=== PATIENT | female | born 1955 | race Caucasian/White ===

== ENCOUNTER 2016-08-29 18:17 | Inpatient (IN) | payer BC ==
[~2016-08-29] VITALS: Ht 165.1 cm; Wt 68.0 kg
[2016-08-29 20:38] LABS: EOSINOPHIL (%) 0.6 % (0-5); HEMATOCRIT 39.9 % (36.0-46.0); LYMPHOCYTE COUNT 1.4 K/uL (1.0-2.8); MCH 31.8 PG (29.0-34.0); MCHC 34.8 G/DL (30.0-36.0); MCV 91.3 FL (83-99); MEAN PLAT.VOLUME 9.6 uM^3 (9.5-12.4); MONOCYTE (%) 6.3 % (3-12); MONOCYTE COUNT 0.4 K/uL (0-0.8); NEUTROPHIL (%) 70.2 % (45-76); NEUTROPHIL COUNT 4.4 K/uL (1.8-6.4); PLATELET COUNT 241 K/uL (156-360); RBC DIS.WIDTH-SD 42.7 % (39-53); RED BLOOD COUNT 4.37 M/uL (3.80-5.20); WHITE BLOOD COUNT 6.3 K/uL (4.1-10.2)
[2016-08-29 20:46] LABS: CHLORIDE 109 mEq/L (99-109); SODIUM 144 mEq/L (136-147)
[2016-08-29 20:48] LABS: GLUCOSE 122 mg/dL (70-99)
[2016-08-29 20:49] LABS: ANION GAP 12 MEQ/L (2-14)
[2016-08-29 20:52] LABS: GFR ESTIMATE (CALCULATED) > 59 mL/min/
[2016-08-29 20:53] LABS: TROP-I INTERPRETATION POSITIVE; UREA NITROGEN (BUN) 11 mg/dL (9-23)
[2016-08-29 20:54] LABS: TROPONIN-I 1.53 ng/mL (0.0-0.30)
[2016-08-29] MEDS ORDERED: XANAX0.25 MG PO (21:45)
[2016-08-29] MEDS ORDERED: ZOCOR10 MG PO ×2 (21:46→21:47)
[2016-08-29] MEDS ORDERED: ERGOCALCIF50000 UNIT PO (21:46)
[2016-08-29] MEDS ORDERED: NORVASC5 MG PO (21:47)
[2016-08-29] MEDS ORDERED: CYANOCOBAL1000 MCG/2 IM (21:48)
[2016-08-29 22:12] LABS: PROTHROMBIN TIME 10.5 (9.2-11.2); PTT 25.8 (25-32)
[2016-08-29 23:50] VITALS: BP 147/83
[2016-08-30] VITALS (7 sets, daily range): BP systolic 101–164; BP diastolic 70–94
[2016-08-30 04:12] LABS: INTER. NORMALIZED RATIO 1.1; PROTHROMBIN TIME 10.8 (9.2-11.2)
[2016-08-30 04:19] LABS: CREATINE KINASE 120 IU/L (1-294); TOTAL CK 120 IU/L (1-294)
[2016-08-30 04:25] LABS: TROP-I INTERPRETATION POSITIVE
[2016-08-30 04:26] LABS: CK-MB 8.3 ng/mL (0.0-4.9)
[2016-08-30 04:27] LABS: TROPONIN-I 1.32 ng/mL (0.0-0.30)
[2016-08-30 04:32] LABS: PTT 67.3 (25-32)
[2016-08-30 10:53] LABS: CREATINE KINASE 104 IU/L (1-294); TOTAL CK 104 IU/L (1-294)
[2016-08-30 10:57] LABS: TROP-I INTERPRETATION POSITIVE; TROPONIN-I 0.74 ng/mL (0.0-0.30)
[2016-08-30 11:29] LABS: CK-MB 6.5 ng/mL (0.0-4.9)
[2016-08-31 04:13] VITALS: BP 109/62
[2016-08-31 07:30] VITALS: BP 116/53
[2016-08-31 11:35] VITALS: BP 123/61
[2016-08-31 15:45] VITALS: BP 142/84
[2016-08-31 19:20] VITALS: BP 135/82
[2016-09-01 00:11] VITALS: BP 90/50
[2016-09-01 03:37] VITALS: BP 121/67
[2016-09-01 06:40] LABS: EOSINOPHIL (%) 1.5 % (0-5); EOSINOPHIL COUNT 0.1 K/uL (0-0.3); HEMATOCRIT 43.2 % (36.0-46.0); LYMPHOCYTE COUNT 1.3 K/uL (1.0-2.8); MCH 31.7 PG (29.0-34.0); MCHC 33.6 G/DL (30.0-36.0); MCV 94.5 FL (83-99); MEAN PLAT.VOLUME 10.1 uM^3 (9.5-12.4); MONOCYTE (%) 10.1 % (3-12); MONOCYTE COUNT 0.4 K/uL (0-0.8); NEUTROPHIL (%) 55.2 % (45-76); NEUTROPHIL COUNT 2.2 K/uL (1.8-6.4); PLATELET COUNT 214 K/uL (156-360); RBC DIS.WIDTH-CV 13.3 % (11.8-14.6); RBC DIS.WIDTH-SD 45.9 % (39-53); RED BLOOD COUNT 4.57 M/uL (3.80-5.20)
[2016-09-01 06:47] LABS: WHITE BLOOD COUNT 4.1 K/uL (4.1-10.2)
[2016-09-01 09:02] VITALS: BP 118/65
[2016-09-01 16:21] VITALS: BP 136/95
[2016-09-01 20:08] VITALS: BP 130/93
[2016-09-01 23:47] VITALS: BP 114/58
[2016-09-02 03:17] VITALS: BP 114/68
[2016-09-02 08:00] VITALS: BP 120/82
[2016-09-02] MEDS ORDERED: NITROGLYCERIN0.4 MG SL (09:23)
[2016-09-02] MEDS ORDERED: LOPRESSOR25 MG PO (09:23)
[2016-09-02] MEDS ORDERED: ASPIR-LOW81 MG PO (09:23)
== END 2016-09-02 10:45 | disposition home or self-care (01) | DRG 282 ==
LOC: EME 18:17 → EDOF 22:11 → 4EAST 22:11
PROVIDERS: Emergency Medicine; Internal Medicine
DX: I21.4 Non-ST elevation (NSTEMI) myocardial infarction (principal); I25.10 Atherosclerotic heart disease of native coronary artery without angina pectoris; I11.9 Hypertensive heart disease without heart failure; J44.9 Chronic obstructive pulmonary disease, unspecified; E78.5 Hyperlipidemia, unspecified; F41.9 Anxiety disorder, unspecified; E55.9 Vitamin D deficiency, unspecified; E53.8 Deficiency of other specified B group vitamins; M19.90 Unspecified osteoarthritis, unspecified site; Z87.891 Personal history of nicotine dependence
CPT/HCPCS: 71010; 80048; 82550; 82550 91; 82553; 84484; 85025; 85347; 85610; 85730; 93005; 99281; 99285; C1769; C1887; J0153; J1644; J2250; J3010; J3246; J7040; J7050